=== PATIENT | male | born 1930 | race Caucasian/White ===

== ENCOUNTER → 2016-03-16 | Emergency (ER) | payer MEDICARE ==
[~2016-03-16] VITALS: Ht 180.3 cm; Wt 90.9 kg
[~2016-03-16] MED LIST: ACET325T38 PO; ALBU1.25 IH; ALBU2.5V12 INH; ALBU8.5H2 IH; ARFO15VI2 IH; ASPI-504 PO; ATN50T PO; ATOR40TA2 PO; BUDE0.256 IH; BUDE10.2 IH; CMBV14CC IH; DOXY100C PO; DOXY100T41 PO; ED- TRAMADOL 50 MG (ULTRAM) 6 TABLETS/BTL PO ONE; EUCA50OI5 TP; GUAI120016 PO; GUAI600T3 PO; IBUP1CAP11 PO; IBUP1TAB14 PO; IPR14UD INH; KETOROLAC 60 MG/2 ML (TORADOL) VIAL IM ONE; LEVO500T16 PO; LEVO500T80 PO; LOSA1TAB69 PO; LOSA1TAB70 PO; METH4TAB27 PO; MOME0.243 INH; NAPR1TAB25 PO; OLOD4MIS2 IH; PRED20TA PO; PSYL0.5211 PO; PSYL660P17 PO; ROFL500T PO; SIMV40TA2 PO; TIOT18CA IH; TRAZ-28 PO; VIT1CAPS31 PO
[2016-03-16 07:04] LABS: BILIRUBIN,URINE Negative (Negative); COLOR,URINE Yellow; GLUCOSE, URINE (UA) Negative (Negative); LEUKOCYTE ESTERASE ,URINE 1+ (Negative); PH,URINE 5.5 (5.0 - 8.0); UROBILINOGEN,URINE 0.2 mg/dL (0.2-1.0)
[2016-03-16 07:12] LABS: CLARITY,URINE Slightly Cloudy; URINE CENTRIFUGED VOLUME 10 mL
[2016-03-16 07:13] LABS: RBC,URINE None Seen /HPF
[2016-03-16 07:18] LABS: BASOPHILS % (AUTO) 0 % (0-2); EOSINOPHILS # (AUTO) 0.1 10^3uL; EOSINOPHILS % (AUTO) 1 % (0-4); LYMPHOCYTES # (AUTO) 1.4 X10^3; MEAN CORPUSCULAR HEMOGLOBIN 30.3 PG (26.0-34.0); MEAN CORPUSCULAR HGB CONC 34.7 g/dL (31.0-37.0); MEAN CORPUSCULAR VOLUME 87 FL (80-100); MEAN PLATELET VOLUME 9.6 FL (6.0-9.5); MONOCYTES # (AUTO) 0.8 X10^3; MONOCYTES % (AUTO) 11 % (3-11); NEUTROPHILS % (AUTO) 68 % (51-67); PLATELET COUNT 264 10^3uL (150-450); WHITE BLOOD COUNT 7.31 10^3uL (4.0-11.0)
[2016-03-16 07:24] LABS: ALBUMIN 4.4 g/dL (3.4-5.0); ANION GAP 17.6 MEQ/L (3-15); TOTAL PROTEIN 7.3 g/dL (6.4-8.5)
[2016-03-16 08:22] VITALS: BP 155/70
--- NOTE | 2016-03-16 08:26 | Diagnostic Imaging Report ---
PROCEDURE: US Aorta Doppler. TECHNIQUE: Multiple real time grayscale images were obtained over the abdominal aorta in various projections. INDICATION: Back pain. COMPARISON: None. FINDINGS: Mild atherosclerosis is seen throughout the abdominal aorta. However, no dissection or aneurysm is seen. There is no free fluid. No occlusion identified. The visualized iliac vessels are normal. IMPRESSION: No aneurysm identified. Dictated by: Dictated on workstation # [id number]
--- NOTE | 2016-03-16 08:39 | Diagnostic Imaging Report ---
INDICATION: Left lower extremity swelling and pain. COMPARISON: None. FINDINGS: The visualized deep and superficial venous system is patent. There is no mass or DVT. IMPRESSION: Negative left lower extremity venous Doppler. Dictated by: Dictated on workstation # [id number]
== END | disposition home or self-care (01) ==
LOC: ED 06:04
DX: N39.0 Urinary tract infection, site not specified (principal); R60.9 Edema, unspecified; M79.662 Pain in left lower leg
CPT/HCPCS: 36415; 80053; 81003; 81015; 85025; 85379; 85610; 87088; 93971; 93978; 96372; 99283; A9270; J1885

== ENCOUNTER 2016-03-17 09:49 | Emergency (ER) | payer MEDICARE ==
[~2016-03-17] VITALS: Ht 180.3 cm; Wt 100.0 kg
[~2016-03-17 09:49] MED LIST changes: -ALBU2.5V12 INH; -ALBU8.5H2 IH; -DOXY100T41 PO; -ED- TRAMADOL 50 MG (ULTRAM) 6 TABLETS/BTL PO ONE; -GUAI120016 PO; -IBUP1CAP11 PO; -IPR14UD INH; -KETOROLAC 60 MG/2 ML (TORADOL) VIAL IM ONE; -LOSA1TAB70 PO; -MOME0.243 INH; -OLOD4MIS2 IH; -TRAZ-28 PO
[2016-03-17] MEDS ORDERED: SODIUM CHLORIDE FLUSH 3 ML SYR IV PRN (10:10)
[2016-03-17] MEDS ORDERED: SODIUM CHLORIDE 250 ML IV PRN (10:10)
[2016-03-17] MEDS ORDERED: SODIUM CHLORIDE FLUSH 10 ML SYR IV PRN (10:10)
[2016-03-17 10:30] LABS: BASOPHILS % (AUTO) 0 % (0-2); EOSINOPHILS # (AUTO) 0.1 10^3uL; EOSINOPHILS % (AUTO) 1 % (0-4); LYMPHOCYTES # (AUTO) 1.4 X10^3; MEAN CORPUSCULAR HEMOGLOBIN 30.7 PG (26.0-34.0); MEAN CORPUSCULAR HGB CONC 35.2 g/dL (31.0-37.0); MEAN CORPUSCULAR VOLUME 87 FL (80-100); MEAN PLATELET VOLUME 9.6 FL (6.0-9.5); MONOCYTES # (AUTO) 0.9 X10^3; MONOCYTES % (AUTO) 11 % (3-11); NEUTROPHILS # (AUTO) 5.9 X10^3; NEUTROPHILS % (AUTO) 71 % (51-67); PLATELET COUNT 252 10^3uL (150-450); WHITE BLOOD COUNT 8.37 10^3uL (4.0-11.0)
[2016-03-17 10:45] LABS: ALBUMIN 4.2 g/dL (3.4-5.0); ALKALINE PHOSPHATASE 64 U/L (38-126); ANION GAP 16.8 MEQ/L (3-15); BUN/CREATININE RATIO 21 (10-20); CALCULATED IONIZED CALCIUM 4.1 mg/dL (3.8-4.6)
--- NOTE | 2016-03-17 11:21 | Diagnostic Imaging Report ---
INDICATION: Weakness. Frontal chest obtained at 10:54 a.m. and compared to 02/01/16. FINDINGS: Heart is borderline in size. Aorta is tortuous. There is no acute infiltrate or pneumothorax or pleural fluid. IMPRESSION: Borderline heart size with tortuous aorta. No acute process in the chest. Dictated by: Dictated on workstation # [id number]
[2016-03-17 12:09] VITALS: BP 142/79
[2016-05-06] MEDS ORDERED: OLOD4MIS2 IH (18:34)
[2016-05-07] MEDS ORDERED: IPR14UD INH (09:17)
[2016-05-07] MEDS ORDERED: IBUP1CAP11 PO (09:17)
[2016-05-07] MEDS ORDERED: ALBU8.5H2 IH (09:17)
[2016-05-07] MEDS ORDERED: MOME0.243 INH (09:17)
[2016-05-07] MEDS ORDERED: TRAZ-28 PO (09:17)
[2016-05-07] MEDS ORDERED: LOSA1TAB70 PO (11:16)
[2016-05-07] MEDS ORDERED: PRED20TA PO (11:42)
[2016-05-07] MEDS ORDERED: ALBU2.5V12 INH (11:42)
[2016-05-07] MEDS ORDERED: GUAI120016 PO (11:42)
[2016-05-07] MEDS ORDERED: DOXY100T41 PO (11:42)
== END 2016-03-17 11:55 | disposition home or self-care (01) ==
LOC: ED 09:50
DX: R53.1 Weakness (principal); R53.81 Other malaise; Z87.440 Personal history of urinary (tract) infections; K59.00 Constipation, unspecified; G47.00 Insomnia, unspecified
CPT/HCPCS: 36415; 71010; 80053; 84484; 85025; 93005; 99285; J7050; 99284

== ENCOUNTER 2016-05-06 17:54 | Observation (INO) | payer MEDICARE ==
[~2016-05-06] VITALS: Ht 180.3 cm; Wt 89.6 kg
--- NOTE | 2016-05-06 18:54 | NUR ---
ASSUMED CARE OF PATIENT.
--- NOTE | 2016-05-06 19:00 | NUR ---
PT GIVEN ICE WATER UPON REQUEST
[2016-05-06] MEDS ORDERED: ALBUTEROL/IPRATROPIUM 3MG-0.5MG/3ML (DUONEB) NEB VIAL INH ONE (19:20)
--- NOTE | 2016-05-06 19:30 | NUR ---
CALLED RT TO MAKE THEM AWARE OF TREATMENT ORDER.
[2016-05-06 19:32] LABS: BASOPHILS % (AUTO) 0 % (0-2); EOSINOPHILS # (AUTO) 0.1 10^3uL; EOSINOPHILS % (AUTO) 2 % (0-4); LYMPHOCYTES # (AUTO) 1.2 X10^3; MEAN CORPUSCULAR VOLUME 90 FL (80-100); MEAN PLATELET VOLUME 9.3 FL (6.0-9.5); MONOCYTES # (AUTO) 0.8 X10^3; MONOCYTES % (AUTO) 8 % (3-11); NEUTROPHILS # (AUTO) 7.3 X10^3; NEUTROPHILS % (AUTO) 77 % (51-67); PLATELET COUNT 250 10^3uL (150-450); WHITE BLOOD COUNT 9.46 10^3uL (4.0-11.0)
[2016-05-06 19:36] LABS: MEAN CORPUSCULAR HEMOGLOBIN 31.9 PG (26.0-34.0); MEAN CORPUSCULAR HGB CONC 35.6 g/dL (31.0-37.0)
[2016-05-06 19:42] LABS: ALBUMIN 4.3 g/dL (3.4-5.0); ANION GAP 15.2 MEQ/L (3-15); TOTAL PROTEIN 7.3 g/dL (6.4-8.5)
--- NOTE | 2016-05-06 21:34 | NUR ---
PT WILL BE ADMITTED TO MED-SURG RM 305. PT UP TO BR AND BEGAN COUGHING. BACK TO CHAIR- ISABELLA 92-93% ON RA. FAMILY AT BEDSIDE
[2016-05-06] MEDS ORDERED: ONDANSETRON 2 MG/ML (Z0FRAN) 2 ML VIAL IV PRN (21:50)
[2016-05-06] MEDS ORDERED: ALBUTEROL 0.083% NEB SOLUTION 2.5 MG/3 ML VIAL INH PRN (21:50)
[2016-05-06] MEDS ORDERED: ACETAMINOPHEN 325 MG TAB (TYLENOL) PO PRN (21:50)
--- NOTE | 2016-05-06 21:50 | NUR ---
Patient admitted to room 305 at this time. Please see admission assessment part 1 & 2.
[2016-05-06 22:00] VITALS: BP 159/78
[2016-05-06 22:06] VITALS: BP 159/78
[2016-05-06] MEDS: ALBUTEROL/IPRATROPIUM 3MG-0.5MG/3ML (DUONEB) NEB VIAL INH SCH (23:33)
[2016-05-07] VITALS: BP 148/77
[2016-05-07] MEDS: ALBUTEROL/IPRATROPIUM 3MG-0.5MG/3ML (DUONEB) NEB VIAL INH SCH ×2 (05:19→11:04)
[2016-05-07 06:11] LABS: BASOPHILS % (AUTO) 0 % (0-2); EOSINOPHILS # (AUTO) 0.2 10^3uL; EOSINOPHILS % (AUTO) 2 % (0-4); LYMPHOCYTES # (AUTO) 1.5 X10^3; MEAN CORPUSCULAR HGB CONC 35.3 g/dL (31.0-37.0); MEAN CORPUSCULAR VOLUME 89 FL (80-100); MEAN PLATELET VOLUME 9.7 FL (6.0-9.5); MONOCYTES # (AUTO) 0.7 X10^3; MONOCYTES % (AUTO) 10 % (3-11); NEUTROPHILS # (AUTO) 5.4 X10^3; NEUTROPHILS % (AUTO) 69 % (51-67); PLATELET COUNT 244 10^3uL (150-450); WHITE BLOOD COUNT 7.78 10^3uL (4.0-11.0)
--- NOTE | 2016-05-07 06:28 | NUR ---
Patient has rested on and off throughout night, states that he didn't really sleep well. This AM, up with stand-by assistance to bathroom. IV running without difficulties. No needs at this time.
[2016-05-07 06:43] LABS: MEAN CORPUSCULAR HEMOGLOBIN 31.6 PG (26.0-34.0)
[2016-05-07 06:46] LABS: ALBUMIN 3.7 g/dL (3.4-5.0); ANION GAP 14.4 MEQ/L (3-15); CALCULATED IONIZED CALCIUM 4.4 mg/dL (3.8-4.6); TOTAL PROTEIN 6.1 g/dL (6.4-8.5)
[2016-05-07] MEDS ORDERED: DOXYCYCLINE 100 MG (VIBRAMYCIN) TABLET PO SCH (07:00)
[2016-05-07 07:49] VITALS: BP 169/86
[2016-05-07] MEDS ORDERED: predniSONE 10 MG (DELTASONE) TABLET PO ONE (08:00)
[2016-05-07] MEDS ORDERED: NS FLUSH 3 ML PRN IV (08:10)
[2016-05-07] MEDS ORDERED: NS FLUSH 10 ML PRN IV (08:10)
--- NOTE | 2016-05-07 08:30 | NUR ---
Pt up ad [place] in room. Skin warm, dry, intact. Resprs nonlabored, even on RA. Pt denies pain, SOA. Wishes to go home. Denies other needs.
[2016-05-07] MEDS ORDERED: FAMOTIDINE 20 MG (PEPCID) TABLET PO SCH (09:00)
[2016-05-07] MEDS ORDERED: NS FLUSH 3 ML DAILY IV SCH (09:00)
[2016-05-07] MEDS ORDERED: ROFLUMILAST 500 MCG PO SCH (09:00)
[2016-05-07] MEDS ORDERED: ATENOLOL 50 MG (TENORMIN) TAB PO SCH (09:00)
[2016-05-07] MEDS ORDERED: ASPIRIN 81 MG CHEW (CHILDREN'S ASA) PO SCH (09:00)
--- NOTE | 2016-05-07 11:07 | NUR ---
Pt found sitting on the side of his bed on RA, SPO2 96%, HR 71, RR 16 and non labored with clear BS before and after Duoneb via SVN. Pt states several times he is ready to be discharged as he is feeling fine.
[2016-05-07 11:19] VITALS: BP 175/83
[2016-05-07] MEDS ORDERED: HYDROCHLOROTHIAZIDE 25 MG (HCTZ) TAB PO SCH (11:20)
[2016-05-07] MEDS ORDERED: LOSARTAN 100 MG (COZAAR) TABLET PO SCH (11:20)
--- NOTE | 2016-05-07 11:28 | NUR ---
MED REC COMPLETE--current med list obtained from patient report (written list) and retail pharmacy ([facility]).
--- NOTE | 2016-05-07 12:58 | NUR ---
Discharge instructions reviewed with patient, demonstrates understanding. SL removed with catheter tip intact. No redness or edema noted. Pt denied pharmacy consultation, said he would talk to the pharmacist at his pharmacy if he had any questions. Pt very eager to leave, rushing through the process. Belongings gathered. Pt dismissed at this time via w/c accompanied by Skip Hidalgo CNA and daughter to private vehicle. Belongings and DC packet sent with patient.
[2016-05-07] MEDS ORDERED: ARFORMOTEROL NEB SOLUTION (BROVANA) 15 MCG/2 ML VIAL IH SCH (21:00)
[2016-05-07] MEDS ORDERED: BUDESONIDE NEBS 0.5 MG/2ML (PULMICORT) AMP INH SCH (21:00)
[2016-05-07] MEDS ORDERED: traZODone 50 MG (DESYREL) TABLET PO SCH (21:00)
[2016-05-09] MEDS ORDERED: ATORVASTATIN 40 MG (LIPITOR) TABLET PO SCH (21:00)
== END 2016-05-07 12:58 | disposition home or self-care (01) ==
LOC: ED 17:55 → MED/SURG 21:37 → INTOOBSV 21:37
PROVIDERS: ADMIT Emergency Medicine; ATTEND Emergency Medicine
DX: J44.0 Chronic obstructive pulmonary disease with (acute) lower respiratory infection (principal); J20.9 Acute bronchitis, unspecified; J44.1 Chronic obstructive pulmonary disease with (acute) exacerbation; I10 Essential (primary) hypertension; E86.0 Dehydration; E78.5 Hyperlipidemia, unspecified; M19.90 Unspecified osteoarthritis, unspecified site; G89.29 Other chronic pain; G47.00 Insomnia, unspecified; Z79.82 Long term (current) use of aspirin
CPT/HCPCS: 36415; 71020; 80053; 84484; 85025; 94640; 94760; 96360; 96361; 99283; A9270; G0378; J7030; 99218; 99285

== ENCOUNTER → 2016-05-18 | Outpatient (CLI) | payer MEDICARE | LOC: RAD 15:52 | PROVIDERS: ATTEND Family Medicine | DX: M79.89 Other specified soft tissue disorders (principal) ==

== ENCOUNTER → 2016-05-25 | Outpatient (CLI) | payer MEDICARE | LOC: RAD 14:30 | PROVIDERS: ATTEND Family Medicine | DX: R60.0 Localized edema (principal) | CPT/HCPCS: 93306 ==

== ENCOUNTER 2016-07-30 15:02 | Emergency (ER) | payer MEDICARE ==
[~2016-07-30] VITALS: Ht 180.3 cm; Wt 91.0 kg
[~2016-07-30 15:02] MED LIST changes: +ALBU2.5V12 INH; +ALBU8.5H2 IH; +DOXY100T41 PO; +GUAI120016 PO; +IBUP1CAP11 PO; +IPR14UD INH; +LOSA1TAB70 PO; +MOME0.243 INH; +OLOD4MIS2 IH; +TRAZ-28 PO
--- NOTE | 2016-07-30 16:53 | Diagnostic Imaging Report ---
INDICATION: Injury, left-sided anterior rib pain. FINDINGS: No lung contusion, pneumothorax or hemothorax. No displaced or identified left chest wall fracture deformity. No free air beneath the diaphragms. IMPRESSION: No acute abnormality. Dictated by: Dictated on workstation # [id number]
[2016-07-30 17:31] VITALS: BP 162/94
== END 2016-07-30 17:30 | disposition home or self-care (01) ==
LOC: ED 15:04 → OB 15:15 → ED 15:20
DX: S50.02XA Contusion of left elbow, initial encounter (principal); S80.02XA Contusion of left knee, initial encounter; S20.212A Contusion of left front wall of thorax, initial encounter; W18.39XA Other fall on same level, initial encounter; Y92.414 Local residential or business street as the place of occurrence of the external cause
CPT/HCPCS: 71101; 99282